=== PATIENT | female | born 1980 | race African-American/Black ===

== ENCOUNTER 2016-05-23 15:21 | Emergency (ER) | payer MEDICAID ==
[2015-01-14 06:35] VITALS: BMI 54.4
[~2016-05-23 15:21] MED LIST: ATIVAN1 MG PO; CLARITIN 10 MG10 MG PO; FLOVENT HFA 11012 GM INH; FLUTICASONE PRO16 GM NASAL; GLUCOPHAGE500 MG PO; HYDROCODONE-APA1 TAB PO; INFED50 MG/ML IM; SYMBICORT 16010.2 GM INH; ZANTAC150 MG PO; ZOLOFT50 MG PO
== END 2016-05-23 20:14 | disposition home or self-care (01) ==
LOC: D.ER 15:21
DX: H66.90 Otitis media, unspecified, unspecified ear (principal); J06.9 Acute upper respiratory infection, unspecified; F41.9 Anxiety disorder, unspecified; J45.909 Unspecified asthma, uncomplicated; D50.9 Iron deficiency anemia, unspecified; K21.9 Gastro-esophageal reflux disease without esophagitis; F42.9 Obsessive-compulsive disorder, unspecified

== ENCOUNTER 2016-05-25 10:03 | Emergency (ER) | payer MEDICAID ==
[2015-01-14 06:35] VITALS: BMI 54.4
== END 2016-05-25 13:20 | disposition home or self-care (01) ==
LOC: D.ER 10:03
DX: T36.0X5A Adverse effect of penicillins, initial encounter (principal); Y92.019 Unspecified place in single-family (private) house as the place of occurrence of the external cause; F41.9 Anxiety disorder, unspecified; J45.909 Unspecified asthma, uncomplicated; K21.9 Gastro-esophageal reflux disease without esophagitis; D50.9 Iron deficiency anemia, unspecified; F42.9 Obsessive-compulsive disorder, unspecified

== ENCOUNTER 2016-06-08 00:40 | Emergency (ER) | payer MEDICAID ==
[2015-01-14 06:35] VITALS: BMI 54.4
== END 2016-06-08 01:50 | disposition home or self-care (01) ==
LOC: D.ER 00:40
DX: T78.40XA Allergy, unspecified, initial encounter (principal); X58.XXXA Exposure to other specified factors, initial encounter; F41.9 Anxiety disorder, unspecified; J45.909 Unspecified asthma, uncomplicated; D50.9 Iron deficiency anemia, unspecified; F42.9 Obsessive-compulsive disorder, unspecified

== ENCOUNTER → 2016-07-19 10:37 | Outpatient (CLI) | payer MEDICAID ==
[2015-01-14 06:35] VITALS: BMI 54.4
[2016-07-19 11:20] LABS: BASOPHILS 0.3 % (0.0-2.0); EOSINOPHILS 0.3 % (0-7); HEMATOCRIT 37.9 % (36.0-48.0); IMMATURE GRANULOCYTES 0.1 % (0-5); LYMPHOCYTES 30.9 % (15-50); MCH 25.4 pg (26.0-34.0); MCHC 31.7 g/dL (31.0-37.0); MCV 80.1 fL (80.0-100.0); MONOCYTES 7.5 % (2-11); NEUTROPHILS 60.9 % (40-80); PLATELET COUNT 406 10x3/uL (130-400); RBC 4.73 10x6/uL (4.00-5.40); RDW 14.4 % (11.5-14.5); WBC 7.5 10x3/uL (4.8-10.8)
[2016-07-19 11:40] LABS: % SATURATION 14 % (15-55); IRON 38 ug/dl (35-150); TOTAL IRON BIND CAPACITY 262 ug/dl (260-445); UNSAT IRON BIND CAPACITY 224 ug/dl (150-375)
[2016-07-19 11:53] LABS: ALBUMIN 2.9 g/dL (3.4-5.0); ALKALINE PHOSPHATASE 65 U/L (46-116); ALT (SGPT) 17 U/L (10-68); BILIRUBIN - TOTAL 0.09 mg/dL (0.2-1.3); CALC OSMOLALITY 276 mosm/kg (275-300); CALCIUM 8.8 mg/dL (8.5-10.1); CARBON DIOXIDE 28.5 mmol/L (21.0-32.0); CHLORIDE - SERUM 103 mmol/L (98-107); CREATININE - SERUM 0.8 mg/dL (0.6-1.3); FERRITIN 185 ng/mL (3-244); GLUCOSE 95 mg/dL (74-106); POTASSIUM - SERUM 4.5 mmol/L (3.5-5.1); PROTEIN - SERUM 6.8 g/dL (6.4-8.2); SODIUM 139 mmol/L (136-145); THYROID STIMULATING HORMONE 1.54 uIU/mL (0.36-3.74); UREA NITROGEN 11 mg/dL (7-18); eGFR NON AFRICAN AMERICAN 87 mL/min (90-120)
[2016-07-20 10:23] LABS: FOLATE (FOLIC ACID) - SERUM 5.4 ng/mL (>3.0); T3 - FREE 3.2 pg/mL (2.0-4.4)
== END | disposition home or self-care (01) ==
LOC: D.LAB 10:37
PROVIDERS: Family Medicine
DX: R53.83 Other fatigue (principal)

== ENCOUNTER 2016-09-16 15:35 | Emergency (ER) | payer MEDICAID ==
[2015-01-14 06:35] VITALS: BMI 54.4
== END 2016-09-16 18:02 | disposition home or self-care (01) ==
LOC: D.ER 15:35
DX: J20.9 Acute bronchitis, unspecified (principal); H66.92 Otitis media, unspecified, left ear; F41.9 Anxiety disorder, unspecified; J45.909 Unspecified asthma, uncomplicated; F42.9 Obsessive-compulsive disorder, unspecified

== ENCOUNTER 2016-09-29 21:03 | Emergency (ER) | payer MEDICAID ==
[2015-01-14 06:35] VITALS: BMI 54.4
== END 2016-09-29 21:47 | disposition home or self-care (01) ==
LOC: D.ER 21:03
DX: S30.0XXA Contusion of lower back and pelvis, initial encounter (principal); W06.XXXA Fall from bed, initial encounter; Y93.89 Activity, other specified; Y92.013 Bedroom of single-family (private) house as the place of occurrence of the external cause

== ENCOUNTER → 2016-10-23 14:53 | Outpatient (CLI) | payer MEDICAID ==
[2015-01-14 06:35] VITALS: BMI 54.4
[2016-10-23 16:13] LABS: T4 THYROXIN - FREE 1.15 ng/dL (0.76-1.46); T4 THYROXINE 10.5 ug/dL (4.7-13.3); THYROID STIMULATING HORMONE 2.69 uIU/mL (0.36-3.74)
== END | disposition home or self-care (01) ==
LOC: D.LAB 14:53
PROVIDERS: Family Medicine
DX: R68.89 Other general symptoms and signs (principal)

== ENCOUNTER 2016-11-24 14:36 | Emergency (ER) | payer MEDICAID ==
[2015-01-14 06:35] VITALS: BMI 54.4
== END 2016-11-24 16:30 | disposition home or self-care (01) ==
LOC: D.ER 14:36
DX: S49.91XA Unspecified injury of right shoulder and upper arm, initial encounter (principal); W19.XXXA Unspecified fall, initial encounter; Y93.89 Activity, other specified; Y92.89 Other specified places as the place of occurrence of the external cause; R53.1 Weakness

== ENCOUNTER 2017-04-10 21:38 | Emergency (ER) | payer MEDICAID ==
[2015-01-14 06:35] VITALS: BMI 54.4
[2017-04-10 23:03] LABS: BASOPHILS 0.3 % (0-2); EOSINOPHILS 0.5 % (0-7); HEMATOCRIT 37.3 % (36.0-48.0); HEMOGLOBIN 12.1 g/dL (12-16); IMMATURE GRANULOCYTES 0.3 % (0-5); LYMPHOCYTES 34.1 % (15-50); MCH 26.3 pg (26.0-34.0); MCHC 32.4 g/dL (31.0-37.0); MCV 81.1 fL (80.0-100.0); MEAN PLATELET VOLUME 8.9 fL (7.4-10.4); MONOCYTES 7.2 % (2-11); NEUTROPHILS 57.6 % (40-80); PLATELET COUNT 446 10x3/uL (130-400); RDW 15.1 % (11.5-14.5); WBC 11.1 10x3/uL (4.8-10.8)
[2017-04-10 23:20] LABS: ALKALINE PHOSPHATASE 96 U/L (46-116); ALT (SGPT) 28 U/L (10-68); BILIRUBIN - TOTAL 0.12 mg/dL (0.2-1.3); CALC OSMOLALITY 276 mosm/kg (275-300); CALCIUM 8.8 mg/dL (8.5-10.1); CARBON DIOXIDE 28.8 mmol/L (21.0-32.0); CHLORIDE - SERUM 101 mmol/L (98-107); GLUCOSE 125 mg/dL (74-106); POTASSIUM - SERUM 3.6 mmol/L (3.5-5.1); PROTEIN - SERUM 7.4 g/dL (6.4-8.2); SODIUM 137 mmol/L (136-145); UREA NITROGEN 17 mg/dL (7-18); eGFR NON AFRICAN AMERICAN 67 mL/min (90-120)
[2017-04-10 23:34] LABS: TROPONIN-I < 0.017 ng/mL (0.000-0.060)
== END 2017-04-11 01:05 | disposition home or self-care (01) ==
LOC: D.ER 21:38
PROVIDERS: Family Medicine
DX: J45.901 Unspecified asthma with (acute) exacerbation (principal); R51 Headache; J30.9 Allergic rhinitis, unspecified; F42.9 Obsessive-compulsive disorder, unspecified

== ENCOUNTER 2017-05-25 10:41 | Emergency (ER) | payer MEDICAID ==
[2015-01-14 06:35] VITALS: BMI 54.4
[2017-05-25 11:30] LABS: BASOPHILS 0.4 % (0-2); EOSINOPHILS 1.1 % (0-7); HEMATOCRIT 40.4 % (36.0-48.0); HEMOGLOBIN 13.3 g/dL (12-16); IMMATURE GRANULOCYTES 0.3 % (0-5); LYMPHOCYTES 41.6 % (15-50); MCH 26.7 pg (26.0-34.0); MCHC 32.9 g/dL (31.0-37.0); MCV 81.1 fL (80.0-100.0); MEAN PLATELET VOLUME 8.6 fL (7.4-10.4); MONOCYTES 6.1 % (2-11); NEUTROPHILS 50.5 % (40-80); PLATELET COUNT 442 10x3/uL (130-400); RBC 4.98 10x6/uL (4.00-5.40); RDW 14.7 % (11.5-14.5); WBC 7.6 10x3/uL (4.8-10.8)
[2017-05-25 11:54] LABS: ALBUMIN 3.4 g/dL (3.4-5.0); ALKALINE PHOSPHATASE 107 U/L (46-116); ALT (SGPT) 29 U/L (10-68); CALC OSMOLALITY 275 mosm/kg (275-300); CALCIUM 8.8 mg/dL (8.5-10.1); CARBON DIOXIDE 29.9 mmol/L (21.0-32.0); CHLORIDE - SERUM 101 mmol/L (98-107); CREATININE - SERUM 1.1 mg/dL (0.6-1.3); GLUCOSE 106 mg/dL (74-106); POTASSIUM - SERUM 3.9 mmol/L (3.5-5.1); SODIUM 138 mmol/L (136-145); UREA NITROGEN 13 mg/dL (7-18); eGFR NON AFRICAN AMERICAN 60 mL/min (90-120)
[2017-05-25 12:06] LABS: CKMB 1.3 U/L (0.0-3.6); CREATINE KINASE 133 UL (21-215); TROPONIN-I < 0.017 ng/mL (0.000-0.060)
== END 2017-05-25 13:41 | disposition home or self-care (01) ==
LOC: D.ER 10:41
PROVIDERS: Emergency Medicine
DX: R07.89 Other chest pain (principal); R51 Headache; F42.9 Obsessive-compulsive disorder, unspecified

== ENCOUNTER 2017-06-21 18:45 | Emergency (ER) | payer MEDICAID ==
[2015-01-14 06:35] VITALS: BMI 54.4
== END 2017-06-21 20:32 | disposition left against medical advice (07) ==
LOC: D.ER 18:45
DX: R06.02 Shortness of breath (principal)

== ENCOUNTER 2017-06-27 11:23 | Emergency (ER) | payer MEDICAID ==
[2015-01-14 06:35] VITALS: BMI 54.4
[2017-06-27 13:57] LABS: BASOPHILS 0.5 % (0-2); EOSINOPHILS 1.4 % (0-7); HEMATOCRIT 38.5 % (36.0-48.0); HEMOGLOBIN 12.5 g/dL (12-16); IMMATURE GRANULOCYTES 0.3 % (0-5); LYMPHOCYTES 29.4 % (15-50); MCH 26.2 pg (26.0-34.0); MCHC 32.5 g/dL (31.0-37.0); MCV 80.7 fL (80.0-100.0); MEAN PLATELET VOLUME 8.5 fL (7.4-10.4); MONOCYTES 7.5 % (2-11); NEUTROPHILS 60.9 % (40-80); PLATELET COUNT 409 10x3/uL (130-400); RBC 4.77 10x6/uL (4.00-5.40); RDW 14.8 % (11.5-14.5); WBC 7.8 10x3/uL (4.8-10.8)
[2017-06-27 14:33] LABS: ALKALINE PHOSPHATASE 102 U/L (46-116); ALT (SGPT) 37 U/L (10-68); BILIRUBIN - TOTAL 0.14 mg/dL (0.2-1.3); CALC OSMOLALITY 275 mosm/kg (275-300); CALCIUM 9.1 mg/dL (8.5-10.1); CARBON DIOXIDE 26.2 mmol/L (21.0-32.0); CHLORIDE - SERUM 101 mmol/L (98-107); CREATININE - SERUM 0.9 mg/dL (0.6-1.3); GLUCOSE 88 mg/dL (74-106); POTASSIUM - SERUM 4.3 mmol/L (3.5-5.1); PROTEIN - SERUM 7.3 g/dL (6.4-8.2); SODIUM 138 mmol/L (136-145); UREA NITROGEN 16 mg/dL (7-18); eGFR NON AFRICAN AMERICAN 75 mL/min (90-120)
== END 2017-06-27 14:34 | disposition home or self-care (01) ==
LOC: D.ER 11:23
PROVIDERS: Emergency Medicine
DX: J20.9 Acute bronchitis, unspecified (principal); J45.909 Unspecified asthma, uncomplicated; H66.93 Otitis media, unspecified, bilateral

== ENCOUNTER 2017-12-18 22:34 | Emergency (ER) | payer MEDICAID ==
[~2017-12-18] VITALS: Ht 168.9 cm; Wt 175.5 kg
[2017-12-18 22:48] VITALS: BP 130/81; Ht 168.9 cm; Wt 175.5 kg
== END 2017-12-19 00:58 | disposition left against medical advice (07) ==
LOC: D.ER 22:34
DX: H92.01 Otalgia, right ear (principal)

== ENCOUNTER 2018-03-27 20:48 | Emergency (ER) | payer MEDICAID ==
[~2018-03-27] VITALS: Ht 168.9 cm; Wt 177.3 kg
[2018-03-27 21:20] VITALS: Ht 168.9 cm; Wt 177.3 kg
[2018-03-27] MEDS ORDERED: ULTRAM50 MG PO (23:03)
[2018-03-27 23:16] VITALS: BP 154/102
== END 2018-03-27 23:16 | disposition home or self-care (01) ==
LOC: D.ER 20:48
DX: M25.512 Pain in left shoulder (principal); V09.9XXA Pedestrian injured in unspecified transport accident, initial encounter; Y93.89 Activity, other specified; Y92.89 Other specified places as the place of occurrence of the external cause; E11.9 Type 2 diabetes mellitus without complications; Z86.59 Personal history of other mental and behavioral disorders

== ENCOUNTER → 2018-05-29 05:09 | Day surgery (SDC) | payer MEDICAID ==
[~2018-05-29] VITALS: Ht 168.9 cm; Wt 171.8 kg
[~2018-05-29 05:09] MED LIST changes: +BENADRYL25 MG PO; +BUSPIRONE HCL7.5 MG PO; +CARBINOXAMINE; +HYDROCHLOROTHIA25 MG PO; +ULTRAM50 MG PO; +VALIUM5 MG PO
[2018-05-29 05:27] LABS: HEMOGLOBIN 11.6 g/dL (12-16); MCH 24.7 pg (26.0-34.0); MCHC 31.4 g/dL (31.0-37.0); MCV 78.9 fL (80.0-100.0); MEAN PLATELET VOLUME 8.8 fL (7.4-10.4); RBC 4.69 10x6/uL (4.00-5.40); RDW 16.6 % (11.5-14.5); WBC 8.7 10x3/uL (4.8-10.8)
[2018-05-29 06:35] LABS: HCG URINE NEGATIVE (NEGATIVE)
[2018-05-29 06:50] VITALS: BP 136/88; Ht 168.9 cm; Wt 171.8 kg
--- NOTE | 2018-05-29 08:58 | NUR ---
0008 DC'D HOME. ASSISTED TO CAR WITH FAMILY. ADVISED TO CALL OR COME BACK IF ANY PROBLEMS.
--- NOTE | 2018-05-29 10:57 | OP ---
PATIENT NAME: ODESSA OVIEDO MEDICAL RECORD: [id number] :84 LOCATION:[facility] ADMISSION DATE: SURGEON: KELSEA MURILLO DO DATE OF OPERATION: 05/29/2018 PROCEDURE: EGD with biopsies. INDICATIONS FOR PROCEDURE: Generalized abdominal pain, nausea and vomiting, diarrhea, melenic stools, fluctuating weight. SCOPE: Olympus video gastroscope. MEDICATIONS: Propofol 150 mg IV per anesthesia. ESTIMATED BLOOD LOSS: Minimal. COMPLICATIONS: None. FINDINGS: Informed consent was given. The patient was made comfortable with the above medication. After reaching an adequate level of sedation by slow IV push, the patient was placed on her left side. The endoscope was advanced under direct visualization through the mouth to the second portion of the duodenum. The upper, middle, and lower thirds of the esophagus appeared normal. At the GE junction, there was mild LA class A reflux-induced esophagitis. The endoscope was advanced beyond the GE junction into the stomach, where a large amount of food retention was immediately visualized. Retroflexion was performed to look at the cardia and fundus. There was a small sliding hiatal hernia. The majority of the stomach mucosa could not be visualized, but what could be seen were no obvious ulcers or blood within the stomach. The pylorus was identified. The endoscope was traversed through the pylorus into the duodenum. The duodenum appeared normal to the second portion. The endoscope was then withdrawn back into the stomach and 2 cold forceps biopsies were taken quickly. The endoscope was then withdrawn from the patient. The patient tolerated the procedure well, and there were no complications. IMPRESSION: 1. LA class A reflux-induced esophagitis. 2. Small sliding hiatal hernia. 3. Significant food retention consistent with gastroparesis. PLAN AND RECOMMENDATIONS: 1. Discharge home when recovery parameters are met. 2. Follow up biopsy specimen results. 3. Gastroparesis diet consisting of multiple small frequent meals throughout the day that are low in fiber and fat. 4. We will provide a trial of metoclopramide 5 mg a.c. and h.s. times 1 week. 5. We will also start cholestyramine 4 grams b.i.d. 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 It is possible that this cholestyramine could worsen symptoms of gastroparesis and this will need to be balanced in the future at followup. 6. Proceed with colonoscopy as scheduled. TRANSINT:[id number] Voice Confirmation ID: [id number] DOCUMENT ID: [id number] OPERATIVE REPORT [id number] ODESSA OVIEDO NATHAN A DO at 1057 CC: [id number] DICTATION DATE: 05/29/18 0755 [facility] W[facility] HACKLER: 05/29/18 0903 [address] [place] [id number] [place] [id number]
== END | disposition home or self-care (01) ==
LOC: D.OPS 05:09
PROVIDERS: Anesthesiology; Internal Medicine Gastroenterology
DX: K21.0 Gastro-esophageal reflux disease with esophagitis (principal); K44.9 Diaphragmatic hernia without obstruction or gangrene; K29.50 Unspecified chronic gastritis without bleeding; Z01.812 Encounter for preprocedural laboratory examination

== ENCOUNTER 2018-06-10 06:49 | Day surgery (SDC) | payer MEDICAID ==
[~2018-06-10] VITALS: Ht 167.6 cm; Wt 169.1 kg
[~2018-06-10 06:49] MED LIST changes: -BENADRYL25 MG PO
[2018-06-10 07:10] LABS: BASOPHILS 0.7 % (0-2); EOSINOPHILS 0.8 % (0-7); HEMATOCRIT 38.5 % (36.0-48.0); HEMOGLOBIN 12.1 g/dL (12-16); IMMATURE GRANULOCYTES 0.2 % (0-5); LYMPHOCYTES 34.5 % (15-50); MCH 24.6 pg (26.0-34.0); MCHC 31.4 g/dL (31.0-37.0); MCV 78.4 fL (80.0-100.0); MEAN PLATELET VOLUME 8.4 fL (7.4-10.4); MONOCYTES 6.9 % (2-11); NEUTROPHILS 56.9 % (40-80); PLATELET COUNT 432 10x3/uL (130-400); RBC 4.91 10x6/uL (4.00-5.40); RDW 16.5 % (11.5-14.5); WBC 6.1 10x3/uL (4.8-10.8)
[2018-06-10 07:23] LABS: ANION GAP 12.9 mmol/L (8-16); CALCIUM 8.8 mg/dL (8.5-10.1); CARBON DIOXIDE 28.9 mmol/L (21.0-32.0); POTASSIUM - SERUM 3.8 mmol/L (3.5-5.1)
[2018-06-10] MEDS ORDERED: BENADRYL25 MG PO (07:54)
[2018-06-10 08:01] VITALS: BP 142/101; Ht 167.6 cm; Wt 169.1 kg
[2018-06-10 08:19] LABS: HCG URINE NEGATIVE (NEGATIVE)
--- NOTE | 2018-06-10 10:04 | NUR ---
1000 FL DIET SERVED.
--- NOTE | 2018-06-10 15:08 | OP ---
PATIENT NAME: ODESSA OVIEDO MEDICAL RECORD: [id number] :84 LOCATION:[facility] ADMISSION DATE: SURGEON: KELSEA MURILLO DO DATE OF OPERATION: 06/10/2018 PROCEDURE: Colonoscopy with biopsies. INDICATIONS FOR PROCEDURE: Diarrhea, generalized abdominal pain. SCOPE: Olympus video pediatric colonoscope. MEDICATIONS: Propofol 400 mg IV per anesthesia. WITHDRAWAL TIME: 9 minutes. ESTIMATED BLOOD LOSS: Minimal. COMPLICATIONS: None. FINDINGS AND DESCRIPTION OF PROCEDURE: Informed consent was given. The patient was made comfortable with the above medication. After reaching an adequate level of sedation by slow IV push, the patient was placed on her left side. A digital rectal examination was performed and it was normal. The endoscope was then advanced under direct visualization through the rectum, to the cecum, to the terminal ileum. The endoscope was slowly withdrawn and the mucosa was carefully examined. The prep quality was fair. There were no polyps visualized on today's examination. There were no diverticula visualized. Stool was collected to submit for further studies to rule out an infectious process. Random biopsies were taken to submit for histology and to rule out the presence of microscopic colitis. Retroflexion was performed in the rectum with visualization of grade I internal hemorrhoids without bleeding. The endoscope was withdrawn from the patient. The patient tolerated the procedure well and there were no complications. IMPRESSION: 1. Grade I internal hemorrhoids. 2. Otherwise, normal colonoscopy. PLAN AND RECOMMENDATIONS: 1. Discharge home when recovery parameters are met. 2. Follow up biopsy specimen results. 3. High fiber diet. 4. Continue trial of cholestyramine 4 grams twice daily for diarrhea. 5. Recall colonoscopy at age 47 for colorectal cancer screening. 6. Follow up in GI clinic in approximately 3 weeks. 7. Can consider trial of dicyclomine or another anticholinergic if cholestyramine is not adequate to help with symptoms. TRANSINT:[id number] Voice Confirmation ID: [id number] DOCUMENT ID: [id number] OPERATIVE REPORT [id number] ODESSA OVIEDO KELSEA MURILLO DO at 1508 CC: [id number] DICTATION DATE: 06/10/18 0947 [employer] ENGINEER: 06/10/18 1032 [facility] [place] 06/10/18 [place] [address]
== END 2018-06-10 10:46 | disposition home or self-care (01) ==
LOC: D.OPS 06:49
PROVIDERS: Anesthesiology; ATTEND Internal Medicine Gastroenterology
DX: K64.0 First degree hemorrhoids (principal); K52.9 Noninfective gastroenteritis and colitis, unspecified; Z01.812 Encounter for preprocedural laboratory examination

== ENCOUNTER 2018-12-20 14:50 | Emergency (ER) | payer MEDICAID ==
[~2018-12-20] VITALS: Ht 167.6 cm; Wt 151.8 kg
[~2018-12-20 14:50] MED LIST changes: +BENADRYL25 MG PO
[2018-12-20 15:04] VITALS: Ht 167.6 cm; Wt 151.8 kg
[2018-12-20 15:33] VITALS: BP 147/98
[2018-12-20] MEDS ORDERED: PROCTOFOAM-HC 110 GM RC (15:50)
== END 2018-12-20 16:37 | disposition home or self-care (01) ==
LOC: D.ER 14:50
DX: K64.8 Other hemorrhoids (principal); K64.4 Residual hemorrhoidal skin tags

== ENCOUNTER 2018-12-23 00:08 | Emergency (ER) | payer MEDICAID ==
[~2018-12-23] VITALS: Ht 167.6 cm; Wt 151.8 kg
[~2018-12-23 00:08] MED LIST changes: +PROCTOFOAM-HC 110 GM RC
[2018-12-23 00:18] VITALS: Ht 167.6 cm; Wt 151.8 kg
[2018-12-23] MEDS ORDERED: ANUSOL-HC25 MG RC (00:44)
--- NOTE | 2018-12-23 01:11 | NUR ---
PATIENT HAS A HISTORY OF DEPRESSION BUT IS NOT CURRENTLY SUICIDAL. SHE IS CURRENTLY SEEING A COUNSELOR FOR HER DEPRESSION. SUICIDE PREVENTION RESOURCES GIVEN
[2018-12-23 01:25] VITALS: BP 167/84
== END 2018-12-23 01:25 | disposition home or self-care (01) ==
LOC: D.ER 00:08
DX: K64.4 Residual hemorrhoidal skin tags (principal)

== ENCOUNTER 2019-01-10 02:55 | Emergency (ER) | payer OTHER ==
[~2019-01-10] VITALS: Ht 167.6 cm; Wt 158.6 kg
[~2019-01-10 02:55] MED LIST changes: +ANUSOL-HC25 MG RC
[2019-01-10 03:01] VITALS: Ht 167.6 cm; Wt 158.6 kg
[2019-01-10 04:59] LABS: BASOPHILS 0.5 % (0-2); EOSINOPHILS 1.4 % (0-7); HEMATOCRIT 39.2 % (36.0-48.0); HEMOGLOBIN 12.4 g/dL (12-16); IMMATURE GRANULOCYTES 0.5 % (0-5); LYMPHOCYTES 32.9 % (15-50); MCH 25.5 pg (26.0-34.0); MCHC 31.6 g/dL (31.0-37.0); MCV 80.7 fL (80.0-100.0); MEAN PLATELET VOLUME 9.3 fL (7.4-10.4); MONOCYTES 8.8 % (2-11); NEUTROPHILS 55.9 % (40-80); RBC 4.86 10x6/uL (4.00-5.40); RDW 15.7 % (11.5-14.5); WBC 6.5 10x3/uL (4.8-10.8)
[2019-01-10 05:00] LABS: PLATELET COUNT 278 10x3/uL (130-400)
[2019-01-10 05:03] LABS: ALBUMIN 3.1 g/dL (3.4-5.0); ALKALINE PHOSPHATASE 101 U/L (46-116); ALT (SGPT) 20 U/L (10-68); BILIRUBIN - TOTAL 0.17 mg/dL (0.2-1.3); CALC OSMOLALITY 280 mosm/kg (275-300); CALCIUM 8.9 mg/dL (8.5-10.1); CARBON DIOXIDE 27.9 mmol/L (21.0-32.0); CHLORIDE - SERUM 103 mmol/L (98-107); CREATININE - SERUM 0.9 mg/dL (0.6-1.3); GLUCOSE 127 mg/dL (74-106); POTASSIUM - SERUM 4.2 mmol/L (3.5-5.1); PROTEIN - SERUM 7.5 g/dL (6.4-8.2); SODIUM 140 mmol/L (136-145); UREA NITROGEN 13 mg/dL (7-18); eGFR NON AFRICAN AMERICAN 75 mL/min (90-120)
[2019-01-10 05:15] LABS: CKMB 1.3 U/L (0.0-3.6); CREATINE KINASE 155 UL (21-215)
[2019-01-10 05:18] LABS: TROPONIN-I < 0.017 ng/mL (0.000-0.060)
[2019-01-10 05:37] LABS: HCG URINE NEGATIVE (NEGATIVE)
[2019-01-10] MEDS ORDERED: FLUTICASONE PRO16 GM NASAL (06:13)
[2019-01-10] MEDS ORDERED: AUGMENTIN 875-11 TAB PO (06:13)
[2019-01-10 06:22] VITALS: BP 155/99
== END 2019-01-10 06:22 | disposition home or self-care (01) ==
LOC: D.ER 02:55
PROVIDERS: Family Medicine
DX: J01.90 Acute sinusitis, unspecified (principal)

== ENCOUNTER 2019-02-04 18:23 | Emergency (ER) | payer OTHER ==
[~2019-02-04] VITALS: Ht 167.6 cm; Wt 170.0 kg
[~2019-02-04 18:23] MED LIST changes: +AUGMENTIN 875-11 TAB PO
[2019-02-04 18:27] VITALS: Ht 167.6 cm; Wt 170.0 kg
[2019-02-04 18:56] LABS: BASOPHILS 0.3 % (0-2); EOSINOPHILS 0.7 % (0-7); HEMATOCRIT 39.8 % (36.0-48.0); HEMOGLOBIN 12.5 g/dL (12-16); IMMATURE GRANULOCYTES 0.1 % (0-5); LYMPHOCYTES 48.3 % (15-50); MCH 25.7 pg (26.0-34.0); MCHC 31.4 g/dL (31.0-37.0); MCV 81.7 fL (80.0-100.0); MEAN PLATELET VOLUME 8.8 fL (7.4-10.4); MONOCYTES 5.7 % (2-11); NEUTROPHILS 44.9 % (40-80); RBC 4.87 10x6/uL (4.00-5.40); RDW 15.3 % (11.5-14.5); WBC 6.8 10x3/uL (4.8-10.8)
[2019-02-04 19:00] LABS: APPEARANCE CLEAR (CLEAR); BILIRUBIN NEGATIVE (NEGATIVE); COLOR YELLOW (YELLOW); GLUCOSE NEGATIVE (NEGATIVE); KETONE NEGATIVE (NEGATIVE); NITRITE NEGATIVE (NEGATIVE); PROTEIN NEGATIVE (NEGATIVE); UROBILINOGEN NORMAL (NORMAL)
[2019-02-04 19:01] LABS: BACTERIA FEW /hpf (NEGATIVE); CALC OSMOLALITY 278 mosm/kg (275-300); CALCIUM 8.9 mg/dL (8.5-10.1); CARBON DIOXIDE 31.6 mmol/L (21.0-32.0); CHLORIDE - SERUM 101 mmol/L (98-107); CREATININE - SERUM 0.9 mg/dL (0.6-1.3); EPITHELIAL CELLS 0-5 /hpf (0-5); GLUCOSE 104 mg/dL (74-106); POTASSIUM - SERUM 3.9 mmol/L (3.5-5.1); RED CELLS - URINE OCC /hpf (0-5); SODIUM 140 mmol/L (136-145); UREA NITROGEN 13 mg/dL (7-18); WHITE CELLS - URINE 0-5 /hpf (NEGATIVE); eGFR NON AFRICAN AMERICAN 75 mL/min (90-120)
[2019-02-04 19:08] LABS: ALBUMIN 3.2 g/dL (3.4-5.0); ALKALINE PHOSPHATASE 102 U/L (46-116); ALT (SGPT) 26 U/L (10-68); AMYLASE - SERUM 42 U/L (25-115); BILIRUBIN - TOTAL 0.26 mg/dL (0.2-1.3); LIPASE 85 U/L (73-393); PROTEIN - SERUM 7.6 g/dL (6.4-8.2)
[2019-02-04 19:12] LABS: PLATELET COUNT 435 10x3/uL (130-400)
[2019-02-04 19:26] LABS: HCG URINE NEGATIVE (NEGATIVE)
[2019-02-04] MEDS ORDERED: LEVSIN/ANASP0.125 MG PO (22:45)
[2019-02-04] MEDS ORDERED: IBUPROFEN800 MG PO (22:47)
[2019-02-04] MEDS ORDERED: CYCLOBENZAPRINE10 MG PO (22:47)
[2019-02-04] MEDS ORDERED: ACETAMINOPHEN500 M1 PO (22:47)
[2019-02-04 22:54] VITALS: BP 185/112
== END 2019-02-04 22:54 | disposition home or self-care (01) ==
LOC: D.ER 18:23
PROVIDERS: Family Medicine
DX: R10.9 Unspecified abdominal pain (principal)

== ENCOUNTER 2020-01-02 20:50 | Emergency (ER) | payer OTHER ==
[~2020-01-02] VITALS: Ht 167.6 cm; Wt 180.9 kg
[~2020-01-02 20:50] MED LIST changes: +ACETAMINOPHEN500 M1 PO; +CYCLOBENZAPRINE10 MG PO; +IBUPROFEN800 MG PO; +LEVSIN/ANASP0.125 MG PO
[2020-01-02 20:55] VITALS: Ht 167.6 cm; Wt 180.9 kg
[2020-01-02] MEDS ORDERED: ZOLOFT50 MG PO (20:59)
[2020-01-02] MEDS ORDERED: VALIUM5 MG PO (20:59)
[2020-01-02] MEDS ORDERED: DIABETIC PILL (21:00)
[2020-01-02] MEDS ORDERED: METHOCARBAMOL500 MG PO (21:52)
[2020-01-02] MEDS ORDERED: DICLOFENAC SODI50 MG PO (21:52)
[2020-01-02 22:10] VITALS: BP 142/87
== END 2020-01-02 22:10 | disposition home or self-care (01) ==
LOC: D.ER 20:50
DX: M25.512 Pain in left shoulder (principal)